=== PATIENT | female | born 1945 | race African-American/Black ===

== ENCOUNTER 2017-08-28 04:31 | Emergency (ER) | payer OTHER ==
[2017-08-28 05:00] VITALS: TEMP 98.5; BMI 34.7
--- NOTE | 2017-08-28 05:22 | PDOC ---
Attending Attestation - HPI HPI: 08/28/17 05:43 The patient is a 71 year old female, with a significant past medical history of hypertension, diabetes mellitus, thyroid surgery, who presents to the emergency department with, palpitations. The patient reports several episodes of palpitations throughout the night and reports a feeling of weakness in her right hand. She denies recent fevers, chills, headache or dizziness. She denies recent nausea, vomit, diarrhea or constipation. She denies recent dysuria, frequency, urgency or hematuria. She denies recent chest pain or shortness of breath. Allergies: NKA Documentation prepared by Srinivas Frausto, acting as manager medical for Miller Cabrera DO. <Srinivas Frausto - Last Filed: 08/28/17 05:44> - Resident Resident Name: Jose A Sears - Physicial Exam PE: 08/28/17 05:59 *Physical Exam General Appearance: Yes: Appropriately Dressed. No: Apparent Distress, Intoxicated HEENT: positive: EOMI, ANGELLA, Normal ENT Inspection, Normal Voice, TMs Normal, Pharynx Normal. negative: Pale Conjunctivae, Photophobia, Scleral Icterus (R), Scleral Icterus (L) Neck: positive: Trachea midline, Normal Thyroid, Supple. negative: Tender, Rigid, Carotid bruit, Stridor, Lymphadenopathy (R), Lymphadenopathy (L), Thyromegaly Respiratory/Chest: positive: Lungs Clear, Normal Breath Sounds. negative: Chest Tender, Respiratory Distress, Accessory Muscle Use, Labored Respiration, RES, Crackles, Rales, Rhonchi, Stridor, Wheezing, Dullness Cardiovascular: positive: Regular Rhythm, Regular Rate, S1, S2. negative: Edema , JVD, Murmur, Bradycardia, Tachycardia Vascular Pulses: Dorsalis-Pedis (R): 2+, Doralis-Pedis (L): 2+ Gastrointestinal/Abdominal: positive: Normal Bowel Sounds, Flat, Soft. negative : Tender, Organomegaly, Pulsatile Mass, Increased Bowel Sounds, Decreased BS, Distended, Guarding, Rebound, Hernia, Hepatomegaly, Spleenomegaly Lymphatic: negative: Adenopathy, Tenderness Musculoskeletal: positive: Normal Inspection. negative: CVA Tenderness, Decreased Range of Motion Extremity: positive: Normal Capillary Refill, Normal Inspection, Normal Range of Motion, Pelvis Stable. negative: Tender, Pedal Edema, Swelling, Erythema Integumentary: positive: Normal Color, Dry, Warm. negative: Cyanotic, Erythema , Jaundice, Rash Neurologic: positive: meal room hand II-XII NML intact, Fully Oriented, Alert, Normal Mood/ Affect, Motor Strength 5/5. negative: EOM Palsy, Facial Droop, Sensory Deficit - Medical Decision Making 08/28/17 20:00 Pt treated and released. <Miller Cabrera - Last Filed: 08/28/17 20:00>
[2017-08-28 05:26] LABS: BASO % 1.1 % (0-2.0); EOS % 2.9 % (0-4.5); HEMOGLOBIN 12.1 GM/dL (10.7-15.3); MCH 29.5 pg (25.7-33.7); MCHC 32.7 g/dl (32.0-36.0); MEAN CELL VOLUME 90.1 fl (80-96); MEAN PLT VOLUME 9.2 fl (7.5-11.1); MONO % 9.4 % (3.8-10.2); NEUT % 39.6 % (42.8-82.8); PLATELET COUNT 236 K/MM3 (134-434); RBC 4.11 M/mm3 (3.60-5.2); RDW 14.7 % (11.6-15.6); WHITE BLOOD COUNT 6.4 K/mm3 (4.0-10.0)
--- NOTE | 2017-08-28 05:45 | PDOC ---
History of Present Illness - General Chief Complaint: Palpitations Stated Complaint: PALPITATIONS Time Seen by Provider: 08/28/17 04:51 History Source: Patient Exam Limitations: No Limitations - History of Present Illness Initial Comments: 08/28/17 05:40 Patient is a 71F with history of anxiety, DM, and HTN here today complaining of palpitations. She states that overnight she's had 3 episodes of a sensation of her heart racing followed by her right hand feeling weak. She denies any other symptoms with these episodes, including chest pain, shortness of breath, nausea , vomiting, diaphoresis and weakness. She states that she feels otherwise ok, just that her hand does not seem to be working properly. She was still able to complete her chores around the house last night. She states that she struggles with anxiety with her health because her son at 45 suddenly from a blood clot. She denies abdominal pain, dysuria. She states that she struggles with constipation sometimes, but last bowel movement was yesterday. Past History - Past Medical History Allergies/Adverse Reactions: Allergies Allergy/AdvReac Type Severity Reaction Status Date / Time No Known Allergies Allergy Verified 12/31/13 15:24 Home Medications: Ambulatory Orders Atenolol [Tenormin -] 25 mg PO DAILY 12/31/13 Fosinopril Na [Monopril (Nf)] 40 mg PO DAILY 12/31/13 Ibuprofen [Motrin -] 400 mg PO TID 12/31/13 Levothyroxine [Synthroid -] 135 mcg PO DAILY 12/31/13 Atorvastatin Ca [Lipitor] 40 mg PO HS 08/28/17 Metformin HCl [Glucophage] 1,000 mg PO BID 08/28/17 COPD: No Diabetes: Yes (type 2) HTN: Yes Hypercholesterolemia: Yes - Suicide/Smoking/Psychosocial Hx Smoking History: Never smoked Have you smoked in the past 12 months: No Hx Alcohol Use: No Drug/Substance Use Hx: No Substance Use Type: None Review of Systems - Review of Systems Comments:: 08/28/17 05:45 GENERAL/CONSTITUTIONAL: No fever or chills. HEAD, EYES, EARS, NOSE AND THROAT: No change in vision. No sore throat. CARDIOVASCULAR: No chest pain or shortness of breath RESPIRATORY: No cough, wheezing, or hemoptysis. GASTROINTESTINAL: No nausea, vomiting, diarrhea. Positive for constipation. GENITOURINARY: No dysuria, frequency, or change in urination. MUSCULOSKELETAL: No joint or muscle swelling or pain. No neck or back pain. SKIN: No rash NEUROLOGIC: No headache, vertigo, loss of consciousness, or change in strength/ sensation. HEMATOLOGIC/LYMPHATIC: No anemia, easy bleeding, or history of blood clots. ALLERGIC/IMMUNOLOGIC: No hives or skin allergy. *Physical Exam - Vital Signs Last Vital Signs Temp Pulse Resp BP Pulse Ox 98.5 F 78 19 148/68 08/28/17 04:57 08/28/17 04:57 08/28/17 04:57 08/28/17 04:57 - Physical Exam Comments: 08/28/17 05:45 GENERAL: Awake, alert, and fully oriented, in no acute distress HEAD: No signs of trauma, normocephalic, atraumatic EYES: PERRLA, EOMI, sclera anicteric, conjunctiva clear ENT: Auricles normal inspection, hearing grossly normal, nares patent, oropharynx clear without exudates. Moist mucosa LUNGS: No distress, speaks full sentences, clear to auscultation bilaterally HEART: Regular rate and rhythm, normal S1 and S2, no murmurs, rubs or gallops, peripheral pulses normal and equal bilaterally. ABDOMEN: Soft, nontender, normoactive bowel sounds. No guarding, no rebound. No masses EXTREMITIES: Normal inspection, Normal range of motion, no edema. No clubbing or cyanosis. NEUROLOGICAL: Cranial nerves II through XII grossly intact. Normal speech, no focal sensorimotor deficits SKIN: Warm, Dry, normal turgor, no rashes or lesions noted. ED Treatment Course - LABORATORY CBC & Chemistry Diagram: 08/28/17 05:14 08/28/17 05:56 - ADDITIONAL ORDERS Additional order review: 08/28/17 05:14 RBC 4.11 MCV 90.1 MCHC 32.7 RDW 14.7 MPV 9.2 Neutrophils % 39.6 L D Lymphocytes % 47.0 H D Monocytes % 9.4 Eosinophils % 2.9 Basophils % 1.1 - RADIOLOGY Radiology Studies Ordered: Category Date Time Status CHEST PA & LAT [RAD] Stat Radiology 08/28/17 05:08 Ordered Medical Decision Making - Medical Decision Making 08/28/17 05:46 71F with history of HTN, DM, and anxiety here today complaining of palpitations. Vital signs stable and normal here. Low threshold to evaluate due to patient's status as diabetic. Differential includes, but is not limited to: anxiety, arrhythmia, acs. Will evaluate with cbc, cmp, trop, mag, cxr, ekg. Will do second trop due to age, dm, htn. EKG shows normal sinus rhythm, normal rate. Normal WI, QTc, QRS intervals. No st elevations/depressions. No t-wave abnormalities. 08/28/17 06:30 CXR shows some haziness in lung tsai, but no overt signs of fluid overload. Lateral film clear. No signs of acute cardiopulmonary process. 08/28/17 06:50 Laboratory Tests 11/06/15 08/28/17 08/28/17 20:32 05:14 05:56 WBC 6.4 Hgb 12.1 Hct 37.0 Plt Count 236 BUN 15 24 H D Creatinine 1.2 H AST 63 H D 59 H ALT 114 H D 85 H D Creatine Kinase Troponin I 08/28/17 05:56 WBC Hgb Hct Plt Count BUN Creatinine AST ALT Creatine Kinase 1379 H Troponin I 0.02 CBC normal. Kidney function bumped from baseline. Last Cr 1.0, last BUN 15. Liver enzymes improved since last visit. CK 1379, elevated. Trop .02. Will do second ck/ck-mb/trop at 10am. 08/28/17 06:[address] Govea. *DC/Admit/Observation/Transfer Diagnosis at time of Disposition: Palpitations - Referrals Referrals: STAFF,NOT ON [Primary Care Provider] - - Patient Instructions - Post Discharge Activity
[2017-08-28 05:52] LABS: INR 0.96 (0.82-1.09); PROTHROMBIN TIME (PATIENT) 10.9 SEC (9.98-11.88)
[2017-08-28 06:34] LABS: ALK PHOS 101 U/L (45-117); ANION GAP 8 (8-16); BILIRUBIN,TOTAL 0.6 mg/dL (0.2-1.0); BLOOD UREA NITROGEN 24 mg/dL (7-18); CALCIUM 8.6 mg/dL (8.5-10.1); CHLORIDE 104 mmol/L (98-107); CO2 24 mmol/L (21-32); CREATININE 1.2 mg/dL (0.55-1.02); GLUCOSE,RANDOM 158 mg/dL (74-106); MAGNESIUM 1.8 mg/dL (1.8-2.4); POTASSIUM 4.9 mmol/L (3.5-5.1); SGOT/AST 59 U/L (15-37); SGPT/ALT 85 U/L (12-78); SODIUM 136 mmol/L (136-145); TOT PROT 7.9 g/dl (6.4-8.2)
[2017-08-28] MEDS ORDERED: SODIUM CHLORIDE 1,000 ML IV STA (07:00)
--- NOTE | 2017-08-28 10:27 | PDOC ---
*Physical Exam - Vital Signs Last Vital Signs Temp Pulse Resp BP Pulse Ox 98.5 F 74 18 137/78 99 08/28/17 08:59 08/28/17 08:59 08/28/17 08:59 08/28/17 08:59 08/28/17 08:59 ED Treatment Course - LABORATORY CBC & Chemistry Diagram: 08/28/17 05:14 08/28/17 05:56 - ADDITIONAL ORDERS Additional order review: Laboratory Results 08/28/17 08/28/17 08/28/17 08:57 05:56 05:56 PT with INR INR Sodium 136 Potassium 4.9 Chloride 104 Carbon Dioxide 24 Anion Gap 8 BUN 24 H D Creatinine 1.2 H Creat Clearance w eGFR 44.29 Random Glucose 158 H D Calcium 8.6 Magnesium 1.8 Total Bilirubin 0.6 D AST 59 H ALT 85 H D Alkaline Phosphatase 101 Creatine Kinase 1313 H 1379 H Creatine Kinase Index 0.5 0.5 CK-MB (CK-2) 7.398 H 7.779 H Troponin I 0.02 0.02 Total Protein 7.9 Albumin 4.0 08/28/17 08/28/17 05:14 05:14 PT with INR 10.90 INR 0.96 Sodium Cancelled Potassium Cancelled Chloride Cancelled Carbon Dioxide Cancelled Anion Gap Cancelled BUN Cancelled Creatinine Cancelled Creat Clearance w eGFR Cancelled Random Glucose Cancelled Calcium Cancelled Magnesium Cancelled Total Bilirubin Cancelled AST Cancelled ALT Cancelled Alkaline Phosphatase Cancelled Creatine Kinase Cancelled Creatine Kinase Index CK-MB (CK-2) Troponin I Cancelled Total Protein Cancelled Albumin Cancelled 08/28/17 05:14 RBC 4.11 MCV 90.1 MCHC 32.7 RDW 14.7 MPV 9.2 Neutrophils % 39.6 L D Lymphocytes % 47.0 H D Monocytes % 9.4 Eosinophils % 2.9 Basophils % 1.1 - Medications Given in the ED: ED Medications Discontinued Medications Generic Name Dose Route Start Last Admin Trade Name Freq PRN Reason Stop Dose Admin Sodium Chloride 1,000 mls @ 1,000 mls/hr 08/28/17 07:00 08/28/17 07:21 Normal Saline - IV 08/28/17 07:59 1,000 mls/hr ASDIR STA Administration *DC/Admit/Observation/Transfer Diagnosis at time of Disposition: Palpitations - Discharge Dispostion Disposition: HOME Admit: No - Referrals Referrals: STAFF,NOT ON [Primary Care Provider] - - Patient Instructions Printed Discharge Instructions: DI for Palpitations, Yoga May Help Reduce Anxiety and Stress Additional Instructions: Come back to the ER for any new, worsening or concerning symptoms,. Follow up with your primary care provider within 3-5 days. - Post Discharge Activity
[2017-08-28 10:51] VITALS: BP 135/68; PULSE 72
--- NOTE | 2017-08-28 12:43 | EKG ---
Test Reason : Blood Pressure : / mmHG Vent. Rate : 079 BPM Atrial Rate : 079 BPM P-R Int : 182 ms QRS Dur : 088 ms QT Int : 372 ms P-R-T Axes : 065 009 035 degrees QTc Int : 426 ms NORMAL SINUS RHYTHM NORMAL ECG WHEN COMPARED WITH ECG OF 06-NOV-2015 20:33, NO SIGNIFICANT CHANGE WAS FOUND Confirmed by BRYON MARIANO MD ([id number]) on 08/28/2017 12:43:35 PM Referred By: Confirmed By:BRYON MARIANO MD
== END 2017-08-28 10:52 | disposition home or self-care (01) ==
LOC: JER 04:31
PROC: 3E0337Z Introduction of Electrolytic and Water Balance Substance into Peripheral Vein, Percutaneous Approach (ICD-10-PCS; principal; 2017-08-28)
DX: R00.2 Palpitations (principal); I10 Essential (primary) hypertension; E11.9 Type 2 diabetes mellitus without complications; Z79.84 Long term (current) use of oral hypoglycemic drugs; F41.9 Anxiety disorder, unspecified
CPT/HCPCS: 36415; 71046-TC; 80053; 82550; 82553; 83735; 84484; 85025; 85610; 93005; 93010; 99284-25

== ENCOUNTER 2017-12-09 06:11 | Observation (INO) | payer OTHER ==
[2017-12-09] MEDS ORDERED: MECLIZINE HCL 25 MG TABLET (FP) PO ONE (07:21)
[2017-12-09] MEDS ORDERED: MECLIZINE HCL 25 MG TABLET (FP) ONE (07:22)
[2017-12-09] MEDS ORDERED: ASPIRIN 81 MG CHEWABLE TABLETS PO ONE (07:44)
[2017-12-09 07:57] LABS: BASO % 1.2 % (0-2.0); EOS % 2.3 % (0-4.5); HEMOGLOBIN 12.3 GM/dL (10.7-15.3); MCH 30.2 pg (25.7-33.7); MCHC 33.4 g/dl (32.0-36.0); MEAN CELL VOLUME 90.5 fl (80-96); MEAN PLT VOLUME 9.6 fl (7.5-11.1); MONO % 7.2 % (3.8-10.2); NEUT % 47.3 % (42.8-82.8); PLATELET COUNT 211 K/MM3 (134-434); RBC 4.09 M/mm3 (3.60-5.2); WHITE BLOOD COUNT 7.2 K/mm3 (4.0-10.0)
[2017-12-09 08:08] LABS: ALBUMIN 4.2 g/dl (3.4-5.0); ANION GAP 10 (8-16); BILIRUBIN,TOTAL 0.7 mg/dL (0.2-1.0); BLOOD UREA NITROGEN 16 mg/dL (7-18); CHLORIDE 104 mmol/L (98-107); CO2 25 mmol/L (21-32); CREATININE 1.2 mg/dL (0.55-1.02); GLUCOSE,RANDOM 212 mg/dL (74-106); MAGNESIUM 1.7 mg/dL (1.8-2.4); POTASSIUM 4.7 mmol/L (3.5-5.1); SGOT/AST 33 U/L (15-37); SGPT/ALT 38 U/L (12-78); SODIUM 139 mmol/L (136-145); TOT PROT 7.8 g/dl (6.4-8.2)
[2017-12-09 08:10] LABS: ALK PHOS 71 U/L (45-117)
[2017-12-09] MEDS ORDERED: ASPIRIN 81 MG CHEWABLE TABLETS ONE (08:42)
[2017-12-09 09:26] LABS: CHOLESTEROL 143 mg/dL (50-200); HDL CHOLESTEROL 80 mg/dL (40-60); LDL CHOLESTEROL (ONLY SJRH) 60 mg/dL (5-100); TRIGLYCERIDES 70 mg/dL (35-160)
--- NOTE | 2017-12-09 09:37 | PDOC ---
History of Present Illness - General History Source: Patient Exam Limitations: No Limitations - History of Present Illness Initial Comments: 12/09/17 10:01 The patient is a 72 year old female with past medical history of hypertension, hyperlipidemia, diabetes, arthritis who presents to the ED with complaints of 3 days of dizziness and unsteadiness on her feet. The patient states that she normally has difficulty walking due to her arthritis, but over the past three days she has been off balanced when she walks, and having a strange sensation in her head. She states that she only experiences the dizziness when she tilts her head back. The patient has also been experiencing a clicking sound behind her right ear as well as right sided neck pain, stating it feels as if she slept wrong. She denies any associated headache, visual changes, focal deficits , nausea, or vomiting. She denies any fever, chills, cough, shortness of breath , chest pain, or urinary symptoms. Allergies: NKDA Surgeries: Thyroidectomy 2/6 systolic ejection murmur <Annalee Oliver - Last Filed: 12/09/17 11:27> <Isrrael Purdy - Last Filed: 12/09/17 11:52> - General Chief Complaint: Lightheaded Stated Complaint: DIZZINESS Time Seen by Provider: 12/09/17 07:06 NIH Stroke Scale - Last Known Well Date/Time & Onset Date Last Known Well: 12/06/17 (upon awakening) - Initial Evaluation Level of consciousness: Alert Ask patient the month and their age: Answers both correctly Ask patient to open & close eyes; make fist and let go: Obeys both correctly Best gaze (horizontal eye movement): Normal Visual field testing: No visual field loss Facial paresis (Show teeth/raise eyebrows/close eyes tight): Normal symmetrical movement Motor Function: Left Arm: Normal Motor Function: Right Arm: Normal (extends arm 90 (or 45) degrees for 10 seconds without drift Motor Function: Left Leg: Normal (extends leg 30 degrees for 5 seconds without drift) Motor Function: Right Leg: Normal (extends leg 30 degrees for 5 seconds without drift) Limb Ataxia: No ataxia Sensory(Use pinprick test arms,legs,trunk,face/side to side): Normal Best language (Describe picture, name items, read sentences): No Aphasia Dysarthria (read several words): Normal articulation Extinction and Inattention: No abnormality - Total Score NIH Stroke Scale Score: 0 <Isrrael Purdy - Last Filed: 12/09/17 11:52> tPA Exclusion checklist 3-4.5h - Ineligibility reason(s) Reasons No tPA given: Outside of window - delayed arrival <Isrrael Purdy - Last Filed: 12/09/17 11:52> Past History <Annalee Oliver - Last Filed: 12/09/17 11:27> - Past Medical History COPD: No Diabetes: Yes (type 2) HTN: Yes Hypercholesterolemia: Yes - Suicide/Smoking/Psychosocial Hx Smoking History: Never smoked Have you smoked in the past 12 months: No Information on smoking cessation initiated: No Hx Alcohol Use: No Drug/Substance Use Hx: No Substance Use Type: None <Isrrael Purdy - Last Filed: 12/09/17 11:52> - Past Medical History Allergies/Adverse Reactions: Allergies Allergy/AdvReac Type Severity Reaction Status Date / Time No Known Allergies Allergy Verified 12/09/17 06:20 Home Medications: Ambulatory Orders Atenolol [Tenormin -] 25 mg PO DAILY 12/31/13 Fosinopril Na [Monopril (Nf)] 40 mg PO DAILY 12/31/13 Ibuprofen [Motrin -] 400 mg PO TID 12/31/13 Levothyroxine [Synthroid -] 135 mcg PO DAILY 12/31/13 Atorvastatin Ca [Lipitor] 40 mg PO HS 08/28/17 Metformin HCl [Glucophage] 1,000 mg PO BID 08/28/17 Review of Systems - Review of Systems Able to Perform ROS?: Yes <Annalee Oliver - Last Filed: 12/09/17 11:27> - Review of Systems Constitutional: No: Chills, Fever HEENTM: No: Recent change in vision Respiratory: No: Cough, Shortness of Breath Cardiac (ROS): No: Chest Pain, Lightheadedness, Syncope ABD/GI: No: Nausea, Vomiting Neurological: Yes: Dizziness. No: Headache All Other Systems: Reviewed and Negative <Isrrael Purdy - Last Filed: 12/09/17 11:52> *Physical Exam - Vital Signs Last Vital Signs Temp Pulse Resp BP Pulse Ox 98.3 F 70 18 133/60 99 12/09/17 06:20 12/09/17 06:20 12/09/17 06:20 12/09/17 06:20 12/09/17 06:20 - Physical Exam Comments: 12/09/17 10:02 GENERAL: The patient is awake, alert, and fully oriented, in no acute distress. HEAD: Normal with no signs of trauma. EYES: Pupils equal, round and reactive to light, extraocular movements intact, sclera anicteric, conjunctiva clear with no pallor. ENT: Ears normal, nares patent, oropharynx clear without exudates. Moist mucous membranes. NECK: Normal range of motion, supple without lymphadenopathy, JVD, or masses. LUNGS: Breath sounds equal, clear to auscultation bilaterally. No wheeze/ crackles. HEART: Regular rate and rhythm, normal S1 and S2 without murmur or rub. ABDOMEN: Soft/nontender/nondistended. BS wnl. No guarding or rebound. No palpable masses. No hepatosplenomegaly. EXTREMITIES: Normal range of motion, no edema. No clubbing or cyanosis. No cords, erythema, or tenderness. PSYCH: Normal mood, normal affect. SKIN: Warm, Dry, normal turgor, no rashes or lesions noted. NEURO: Mental status: The patient is alert and oriented x3. Cranial nerves: Cranial nerves II through XII are intact Motor: The upper extremities are 5 over 5 in all muscle groups. The lower extremities are 5 over 5 in all muscle groups. No pronator drift. Sensation: Sensation is intact to light touch throughout. Cerebellar: Vsxghi-[id number]-aiwx is normal in both upper extremities. Heel-knee- beebe is normal in both lower extremities. Reflexes: 2+ and symmetric in the upper and lower extremities. Gait: Antalgic gait from chronic arthritis. <Annaele Oliver - Last Filed: 12/09/17 11:27> - Vital Signs Last Vital Signs Temp Pulse Resp BP Pulse Ox 98.3 F 70 18 133/60 99 12/09/17 06:20 12/09/17 06:20 12/09/17 06:20 12/09/17 06:20 12/09/17 06:20 <Isrrael Purdy - Last Filed: 12/09/17 11:52> Heart Score/ECG Review #1 ECG reviewed & interpreted by me at: 07:51 General ECG Interpretation: Sinus Rhythm, Normal Rate (62), Normal Intervals ( qtc 395), No acute ischemic changes <Isrrael Purdy - Last Filed: 12/09/17 11:52> ED Treatment Course - LABORATORY CBC & Chemistry Diagram: 12/09/17 07:30 12/09/17 07:30 - ADDITIONAL ORDERS Additional order review: Laboratory Results 12/09/17 12/09/17 07:44 07:30 Sodium 139 Potassium 4.7 Chloride 104 Carbon Dioxide 25 Anion Gap 10 BUN 16 Creatinine 1.2 H Creat Clearance w eGFR 44.16 Random Glucose 212 H Calcium 9.0 Magnesium 1.7 L Total Bilirubin 0.7 AST 33 ALT 38 Alkaline Phosphatase 71 Creatine Kinase 677 H Troponin I < 0.02 Total Protein 7.8 Albumin 4.2 Triglycerides 70 Cholesterol 143 Total LDL Cholesterol 60 HDL Cholesterol 80 H 12/09/17 07:30 RBC 4.09 MCV 90.5 MCHC 33.4 RDW 14.0 MPV 9.6 Neutrophils % 47.3 Lymphocytes % 42.0 H Monocytes % 7.2 Eosinophils % 2.3 Basophils % 1.2 - Medications Given in the ED: ED Medications Discontinued Medications Generic Name Dose Route Start Last Admin Trade Name Freq PRN Reason Stop Dose Admin Aspirin 81 mg 12/09/17 07:44 12/09/17 08:17 Asa - PO 12/09/17 07:45 81 mg ONCE ONE Administration Meclizine HCl 50 mg 12/09/17 07:21 12/09/17 07:33 Antivert - PO 12/09/17 07:22 50 mg ONCE ONE Administration <Annalee Oliver - Last Filed: 12/09/17 11:27> - LABORATORY CBC & Chemistry Diagram: 12/09/17 07:30 12/09/17 07:30 - ADDITIONAL ORDERS Additional order review: Laboratory Results 12/09/17 12/09/17 07:44 07:30 Sodium 139 Potassium 4.7 Chloride 104 Carbon Dioxide 25 Anion Gap 10 BUN 16 Creatinine 1.2 H Creat Clearance w eGFR 44.16 Random Glucose 212 H Calcium 9.0 Magnesium 1.7 L Total Bilirubin 0.7 AST 33 ALT 38 Alkaline Phosphatase 71 Creatine Kinase 677 H Troponin I < 0.02 Total Protein 7.8 Albumin 4.2 Triglycerides 70 Cholesterol 143 Total LDL Cholesterol 60 HDL Cholesterol 80 H 12/09/17 07:30 RBC 4.09 MCV 90.5 MCHC 33.4 RDW 14.0 MPV 9.6 Neutrophils % 47.3 Lymphocytes % 42.0 H Monocytes % 7.2 Eosinophils % 2.3 Basophils % 1.2 - RADIOLOGY Radiology Studies Ordered: Category Date Time Status HEAD CT (STROKE) [CT] Stat CT Scan 12/09/17 07:44 Completed - Medications Given in the ED: ED Medications Discontinued Medications Generic Name Dose Route Start Last Admin Trade Name Paul PRN Reason Stop Dose Admin Aspirin 81 mg 12/09/17 07:44 12/09/17 08:17 Asa - PO 12/09/17 07:45 81 mg ONCE ONE Administration Meclizine HCl 50 mg 12/09/17 07:21 12/09/17 07:33 Antivert - PO 12/09/17 07:22 50 mg ONCE ONE Administration <Isrrael Purdy - Last Filed: 12/09/17 11:52> Medical Decision Making - Medical Decision Making 12/09/17 10:[address] Dr[address] Pacheco at his office. Awaiting call back. 12/09/17 11:27 Microblog sent [facility]. Awaiting call back <Annalee Oliver - Last Filed: 12/09/17 11:27> - Medical Decision Making 12/09/17 09:39 A portion of this note was documented by scribe services under my direction. I have reviewed the details of the note, within reason, and agree with the documentation with the following case summary and management plan written by me. 72-year-old female with history of hypertension, diabetes, arthritis presents with 3 days of intermittent dizziness and gait disturbance. Patient reports refill episodes lasting only up to 5 minutes of dizziness and sometimes difficulty with coordination and ambulating. There is no headache or vision change, no speech change, no focal weakness. There is no positional vertigo, no cardiopulmonary complaints. No recent dehydration or infections. Vital signs normal Very well-appearing and conversant, ambulating steadily on her own Slight ejection murmur, lungs are otherwise clear and no ectopy or arrhythmia Neurological exam is nonfocal, has baseline antalgic gait from arthritis 72-year-old female with intermittent dizziness and reported gait disturbance for 3 days. Given her risk factors, small ischemic events cannot be excluded as the etiology of her symptoms. Question peripheral in etiology given her ear complaints, but there is no consistent positional change to her symptoms. Labs are within normal limits including troponin Stroke CT head protocol shows no evidence of recent infarct, there are calcifications along the internal carotid arteries Takes daily aspirin UA pending 12/09/17 10:28 UA clear. discussed with patient and outlined concerns for possible TIA and vertebrobasilar syndrome given her risk factors. Should have more extensive workup with eval of carotids and MRI, should be medically optimized with statin , etc. Agrees to admission. Dr. Pacheco armor reconnaissance vehicle crewman and paged for obs placement. 12/09/17 11:50 [employer] covering. Accepted for obs stroke by Dr. Chacon, signout given to ANDRADE Kennedy. Consult entered for Dr. Lowery, armor reconnaissance vehicle crewman neuro. <Isrrael Purdy - Last Filed: 12/09/17 11:52> *DC/Admit/Observation/Transfer - Attestations Scribe Attestion: 12/09/17 10:04 Documentation prepared by Annalee Oliver, acting as medical coding specialist for Isrrael Purdy MD. <Annalee Oliver - Last Filed: 12/09/17 11:27> - Discharge Dispostion Admit: Yes <Isrrael Purdy - Last Filed: 12/09/17 11:52> Diagnosis at time of Disposition: TIA (transient ischemic attack) Qualifiers: Transient cerebral ischemia type: unspecified Qualified Code(s): G45.9 - Transient cerebral ischemic attack, unspecified - Discharge Dispostion Condition at time of disposition: Fair
[2017-12-09 09:48] LABS: URINE APPEARANCE SLCLOUDY; URINE BILIRUBIN NEGATIVE (<2.0 mg/dL); URINE BLOOD NEGATIVE (NEGATIVE); URINE COLOR LTYELLOW; URINE GLUCOSE (UA) 1+ (NEGATIVE); URINE KETONE NEGATIVE (NEGATIVE); URINE LEUK ESTERASE NEGATIVE (NEGATIVE); URINE NITRITE NEGATIVE (NEGATIVE); URINE PROTEIN NEGATIVE (NEGATIVE); URINE UROBILINOGEN NEGATIVE mg/dL (0.2-1.0)
[2017-12-09 11:09] LABS: INR 0.96 (0.82-1.09); PROTHROMBIN TIME (PATIENT) 10.9 SEC (9.7-13.0)
[2017-12-09] MEDS ORDERED: LEVOTHYROXINE NA 100 MCG TABLET (FP) PO SCH (12:00)
[2017-12-09] MEDS ORDERED: MAGNESIUM 2GM/50ML STERILE WATER IVPB IVPB ONE (12:09)
--- NOTE | 2017-12-09 12:31 | HP ---
CHIEF COMPLAINT: Dizziness PCP: Sees doctors at [facility] x 30 years, does not recall names HISTORY OF PRESENT ILLNESS: The patient is a 72 year-old female with past medical history of HTN, HLD, NIDDM , arthritis, anxiety/depression, and s/p thyroidectomy, who presents to the ED with complaints of 3 days of intermittent dizziness and unsteadiness on her feet. The patient states she normally has difficulty walking due to her arthritis, but over the past three days she has been off balance when she walks , and has had a strange sensation in her head. She states that she only experiences the dizziness when she tilts her head back. The patient has also been experiencing a clicking sound behind her right ear as well as right sided neck pain, stating it feels as if she slept wrong. She denies any associated headache, visual changes, focal deficits, nausea, or vomiting. She denies any fever, chills, cough, shortness of breath, chest pain, or urinary symptoms. ER course was notable for: (1) CT head: no acute process (2) Meclizine 50mg x 1; ASA 81mg x 1 Recent Travel: No PAST MEDICAL HISTORY: Hypertension Hyperlipidemia NIDDM Arthritis Depression/anxiety PAST SURGICAL HISTORY: Thyroidectomy Social History: Smoking: never Alcohol: no Drugs: no Family History: Allergies No Known Allergies Allergy (Verified 12/09/17 06:20) HOME MEDICATIONS: Home Medications Medication Instructions Recorded Atenolol [Tenormin -] 25 mg PO DAILY 12/31/13 Fosinopril Na [Monopril (Nf)] 40 mg PO DAILY 12/31/13 Ibuprofen [Motrin -] 400 mg PO TID 12/31/13 Levothyroxine [Synthroid -] 135 mcg PO DAILY 12/31/13 Atorvastatin Ca [Lipitor] 40 mg PO HS 08/28/17 Metformin HCl [Glucophage] 1,000 mg PO BID 08/28/17 REVIEW OF SYSTEMS CONSTITUTIONAL: Absent: fever, chills, diaphoresis, generalized weakness, malaise, loss of appetite, weight change HEENT: Absent: rhinorrhea, nasal congestion, throat pain, throat swelling, difficulty swallowing, mouth swelling, ear pain, eye pain, visual changes CARDIOVASCULAR: Absent: chest pain, syncope, palpitations, irregular heart rate, lightheadedness , peripheral edema RESPIRATORY: Absent: cough, shortness of breath, dyspnea with exertion, orthopnea, wheezing, stridor, hemoptysis GASTROINTESTINAL: Absent: abdominal pain, abdominal distension, nausea, vomiting, diarrhea, constipation, melena, hematochezia GENITOURINARY: Absent: dysuria, frequency, urgency, hesitancy, hematuria, flank pain, genital pain MUSCULOSKELETAL: Absent: myalgia, arthralgia, joint swelling, back pain, neck pain SKIN: Absent: rash, itching, pallor HEMATOLOGIC/IMMUNOLOGIC: Absent: easy bleeding, easy bruising, lymphadenopathy, frequent infections ENDOCRINE: Absent: unexplained weight gain, unexplained weight loss, heat intolerance, cold intolerance NEUROLOGIC: +dizziness, unsteadiness on feet Absent: headache, focal weakness or paresthesias, seizure, mental status changes , bladder or bowel incontinence PSYCHIATRIC: Absent: anxiety, depression, suicidal or homicidal ideation, hallucinations. PHYSICAL EXAMINATION Vital Signs - 24 hr 12/09/17 12/09/17 06:20 10:41 Temperature 98.3 F Pulse Rate 70 Pulse Rate [ 65 Apical] Respiratory 18 16 Rate Blood Pressure 133/60 Blood Pressure 134/75 [Right Arm] O2 Sat by Pulse 99 98 Oximetry (%) GENERAL: Awake, alert, and fully oriented, in no acute distress. HEAD: Normal with no signs of trauma. EYES: Pupils equal, round and reactive to light, extraocular movements intact, sclera anicteric, conjunctiva clear. No lid lag. EARS, NOSE, THROAT: Ears normal, nares patent, oropharynx clear without exudates. Moist mucous membranes. NECK: Normal range of motion, supple without lymphadenopathy, JVD, or masses. LUNGS: Breath sounds equal, clear to auscultation bilaterally. No wheezes, and no crackles. No accessory muscle use. HEART: Regular rate and rhythm, normal S1 and S2 + murmur ABDOMEN: Soft, nontender, not distended, normoactive bowel sounds, no guarding, no rebound, no masses MUSCULOSKELETAL: Normal range of motion at all joints. No bony deformities or tenderness. No CVA tenderness. UPPER EXTREMITIES: 2+ pulses, warm, well-perfused. No cyanosis. No clubbing. No peripheral edema. LOWER EXTREMITIES: 2+ pulses, warm, well-perfused. No calf tenderness. No peripheral edema. NEUROLOGICAL: Cranial nerves II-XII intact. Normal speech. Laboratory Results - last 24 hr 12/09/17 12/09/17 12/09/17 07:19 07:30 07:30 WBC 7.2 RBC 4.09 Hgb 12.3 Hct 37.0 MCV 90.5 MCH 30.2 MCHC 33.4 RDW 14.0 Plt Count 211 MPV 9.6 Neutrophils % 47.3 Lymphocytes % 42.0 H Monocytes % 7.2 Eosinophils % 2.3 Basophils % 1.2 PT with INR INR Sodium 139 Potassium 4.7 Chloride 104 Carbon Dioxide 25 Anion Gap 10 BUN 16 Creatinine 1.2 H Creat Clearance w eGFR 44.16 Random Glucose 212 H Calcium 9.0 Magnesium 1.7 L Total Bilirubin 0.7 AST 33 ALT 38 Alkaline Phosphatase 71 Creatine Kinase 677 H Creatine Kinase Index 0.9 CK-MB (CK-2) 6.254 H Troponin I < 0.02 Total Protein 7.8 Albumin 4.2 Triglycerides Cholesterol Total LDL Cholesterol HDL Cholesterol Urine Color Ltyellow Urine Appearance Slcloudy Urine pH 5.0 Ur Specific [place] 1.011 Urine Protein Negative Urine Glucose (UA) 1+ H Urine Ketones Negative Urine Blood Negative Urine Nitrite Negative Urine Bilirubin Negative Urine Urobilinogen Negative Ur Leukocyte Esterase Negative 12/09/17 12/09/17 07:44 10:40 WBC RBC Hgb Hct MCV MCH MCHC RDW Plt Count MPV Neutrophils % Lymphocytes % Monocytes % Eosinophils % Basophils % PT with INR 10.90 INR 0.96 Sodium Potassium Chloride Carbon Dioxide Anion Gap BUN Creatinine Creat Clearance w eGFR Random Glucose Calcium Magnesium Total Bilirubin AST ALT Alkaline Phosphatase Creatine Kinase Creatine Kinase Index CK-MB (CK-2) Troponin I Total Protein Albumin Triglycerides 70 Cholesterol 143 Total LDL Cholesterol 60 HDL Cholesterol 80 H Urine Color Urine Appearance Urine pH Ur Specific [place] Urine Protein Urine Glucose (UA) Urine Ketones Urine Blood Urine Nitrite Urine Bilirubin Urine Urobilinogen Ur Leukocyte Esterase ASSESSMENT/PLAN 72 year-old female with a PMH significant for HTN, HLD, NIDDM, arthritis, anxiety/depression, and s/p thyroidectomy. Placed on observation for possible TIAs v. CVA. Dizziness --CT head negative for acute process --MRI brain w/o contrast and MRA brain and neck with contrast ordered --US carotids ordered --troponin neg x 1, 2 pending --Echo 12/09: impaired LV relaxation; RV normal; LAE; trace AI --continue home dose statin and ASA --neurology consult pending Hypertension --BP stable --continue lisinopril (formulary substitute), atenolol Hyperlipidemia --HDL 40mg/dL --continue home dose Lipitor 40mg NIDDM --Novolog sliding scale coverage Arthritis --stable Anxiety/depression --on no home meds s/p thyroidectomy --check TSH Hypomagnesemia --repleted FEN Fluids: PO intake adequate Electrolytes: replete as indicated Nutrition: low sodium diabetic DVT prophylaxis: SCDs, oob, ambulation Physical therapy Dispo: continues to require inpatient care. Full code. Visit type - Emergency Visit Emergency Visit: Yes ED Registration Date: 12/09/17 Care time: The patient presented to the Emergency Department on the above date and was hospitalized for further evaluation of their emergent condition. - New Patient This patient is new to me today: Yes Date on this admission: 12/09/17 - Critical Care Critical Care patient: No Hospitalist Screening - Colonoscopy Questionnaire Colonoscopy Questionnaire: Colonoscopy Questionnaire - Patient: 50 - 75 years old and never had a screening colonoscopy: Unknown History of colon or rectal polyps, or CA: Unknown History of IBD, Crohn's disease or UC: Unknown History of abdominal radiation therapy as a child: Unknown - Relative: 1 with colon or rectal CA, or polyps at age 60 or younger: Unknown Colon or rectal CA diagnosed at age 45 or younger: Unknown Multiple relatives with colon or rectal CA: Unknown - Outcome: Screening Result: Negative Screen
[2017-12-09] MEDS ORDERED: SODIUM CHLORIDE 1,000 ML IV SCH (13:00)
[2017-12-09 13:14] VITALS: BMI 35.7
--- NOTE | 2017-12-09 13:39 | EKG ---
Test Reason : Blood Pressure : / mmHG Vent. Rate : 062 BPM Atrial Rate : 062 BPM P-R Int : 182 ms QRS Dur : 096 ms QT Int : 390 ms P-R-T Axes : 055 008 015 degrees QTc Int : 395 ms NORMAL SINUS RHYTHM CANNOT RULE OUT ANTERIOR INFARCT , AGE UNDETERMINED ABNORMAL ECG WHEN COMPARED WITH ECG OF 28-AUG-2017 04:46, NO SIGNIFICANT CHANGE WAS FOUND Confirmed by MD LYNN, ROLANDO ([id number]) on 12/09/2017 1:39:06 PM Referred By: Confirmed By:ROLANDO BAILEY MD
[2017-12-09] MEDS: ATENOLOL 25 MG TABLET (FP) PO SCH ×2 (14:12→14:22)
[2017-12-09] MEDS: LISINOPRIL 20 MG TABLET (FP) PO SCH ×2 (14:12→14:22)
[2017-12-09] MEDS ORDERED: PT OWN MED DRAWER 7, Y5N ONE (17:05)
[2017-12-09] MEDS: INSULIN SLIDING SCALE (NOVOLOG) 1 VIAL SQ SCH ×2 (17:31→21:31)
[2017-12-09] MEDS ORDERED: diazePAM 5 MG TABLET PO ONE ×2 (18:30)
[2017-12-09] MEDS ORDERED: ATORVASTATIN CA 40 MG TABLET (FP) PO SCH (22:00)
[2017-12-10] MEDS ORDERED: LEVOTHYROXINE NA 25 MCG TABLET (FP) ONE (05:10)
[2017-12-10] MEDS ORDERED: LEVOTHYROXINE NA 112 MCG TABLET (FP) ONE (05:10)
[2017-12-10] MEDS ORDERED: INSULIN (NOVOLOG) ASPART 100 UNITS/ML 10ML VIAL ONE ×3 (06:37→17:20)
[2017-12-10] MEDS: INSULIN SLIDING SCALE (NOVOLOG) 1 VIAL SQ SCH ×3 (06:38→17:21)
[2017-12-10 06:59] LABS: BASO % 0.6 % (0-2.0); EOS % 2.5 % (0-4.5); HEMATOCRIT 35.1 % (32.4-45.2); HEMOGLOBIN 11.6 GM/dL (10.7-15.3); MCH 30.1 pg (25.7-33.7); MCHC 33.2 g/dl (32.0-36.0); MEAN CELL VOLUME 90.5 fl (80-96); MEAN PLT VOLUME 10.1 fl (7.5-11.1); MONO % 8.7 % (3.8-10.2); NEUT % 35.2 % (42.8-82.8); PLATELET COUNT 191 K/MM3 (134-434); RBC 3.87 M/mm3 (3.60-5.2); RDW 14.3 % (11.6-15.6); WHITE BLOOD COUNT 5.3 K/mm3 (4.0-10.0)
[2017-12-10] MEDS ORDERED: LEVOTHYROXINE 112 MCG, LEVOTHYROXINE 25 MCG PO SCH (07:00)
[2017-12-10 07:27] LABS: CHLORIDE 108 mmol/L (98-107); POTASSIUM 4.4 mmol/L (3.5-5.1); SODIUM 141 mmol/L (136-145)
[2017-12-10 07:34] LABS: ALBUMIN 3.6 g/dl (3.4-5.0); ALK PHOS 55 U/L (45-117); ANION GAP 5 (8-16); BILIRUBIN,TOTAL 0.8 mg/dL (0.2-1.0); BLOOD UREA NITROGEN 11 mg/dL (7-18); CALCIUM 8.5 mg/dL (8.5-10.1); CO2 28 mmol/L (21-32); GLUCOSE,RANDOM 194 mg/dL (74-106); SGOT/AST 28 U/L (15-37); SGPT/ALT 36 U/L (12-78); TOT PROT 6.7 g/dl (6.4-8.2)
[2017-12-10] MEDS: LISINOPRIL 20 MG TABLET (FP) PO SCH (09:50)
[2017-12-10] MEDS: ATENOLOL 25 MG TABLET (FP) PO SCH (09:50)
[2017-12-10] MEDS ORDERED: [UNRECOGNIZED DRUG - OTHER] PO SCH (10:00)
[2017-12-10] MEDS ORDERED: ASPIRIN COATED 81 MG TABLET.EC PO SCH (10:00)
--- NOTE | 2017-12-10 10:04 | CONSULT ---
Consult - text type - Consultation Consultation Note: Neurology CHIEF COMPLAINT: Dizziness HISTORY OF PRESENT ILLNESS: 72 year-old female with past medical history of HTN, HLD, NIDDM, arthritis, anxiety/depression, and s/p thyroidectomy, who presented to the ED with complaints of 3 days of intermittent dizziness and unsteadiness on her feet. The patient states she normally has difficulty walking due to her arthritis, but over the past three days she has been off balance when she walks, and has had a strange sensation in her head. She states that she only experiences the dizziness when she tilts her head back. The patient has also been experiencing a clicking sound behind her right ear as well as right sided neck pain, stating it feels as if she slept wrong. She denies any associated headache, visual changes, focal deficits, nausea, or vomiting. She denies any fever, chills, cough, shortness of breath, chest pain, or urinary symptoms. CT head completed in ER and without acute changes. MRI/MRA attempted overnight and patient with clautrophobia and could not tolerate despite oral medication. Requesting possible IV medication. Recent Travel: No PAST MEDICAL HISTORY: Hypertension Hyperlipidemia NIDDM Arthritis Depression/anxiety PAST SURGICAL HISTORY: Thyroidectomy Social History: Smoking: never Alcohol: no Drugs: no Family History: Allergies No Known Allergies Allergy (Verified 12/09/17 06:20) Home Medication List Medication Instructions Recorded Confirmed Type Atenolol [Tenormin -] 25 mg PO DAILY 12/31/13 12/09/17 History Fosinopril Na [Monopril (Nf)] 40 mg PO DAILY 12/31/13 12/09/17 History Ibuprofen [Motrin -] 400 mg PO TID 12/31/13 12/09/17 History Levothyroxine [Synthroid -] 135 mcg PO DAILY 12/31/13 12/09/17 History Atorvastatin Ca [Lipitor] 40 mg PO HS 08/28/17 12/09/17 History Metformin HCl [Glucophage] 1,000 mg PO BID 08/28/17 12/09/17 History Active Medications Generic Name Dose Route Start Last Admin Trade Name Freq PRN Reason Stop Dose Admin Aspirin 81 mg 12/10/17 10:00 12/10/17 09:50 Ecotrin - PO 81 mg DAILY CHANTELL Administration Atenolol 25 mg 12/09/17 12:15 12/10/17 09:50 Tenormin - PO 25 mg DAILY CHANTELL Administration Atorvastatin Calcium 40 mg 12/09/17 22:00 12/09/17 21:27 Lipitor - PO 40 mg HS CHANTELL Administration Sodium Chloride 1,000 mls @ 42 mls/hr 12/09/17 13:00 12/09/17 14:12 Normal Saline - IV 42 mls/hr ASDIR CHANTELL Administration Insulin Aspart 1 vial 12/09/17 16:30 12/10/17 06:38 Novolog Vial Sliding Scale - SQ 4 units ACHS CHANTELL Administration Protocol Levothyroxine Sodium 112 mcg/ 137 mcg 12/10/17 07:00 12/10/17 06:38 Levothyroxine Sodium 25 mcg PO 137 mcg DAILY@0700 CHANTELL Administration Lisinopril 40 mg 12/09/17 12:15 12/10/17 09:50 Prinivil PO 40 mg DAILY CHANTELL Administration REVIEW OF SYSTEMS CONSTITUTIONAL: Absent: fever, chills, diaphoresis, generalized weakness, malaise, loss of appetite, weight change HEENT: Absent: rhinorrhea, nasal congestion, throat pain, throat swelling, difficulty swallowing, mouth swelling, ear pain, eye pain, visual changes CARDIOVASCULAR: Absent: chest pain, syncope, palpitations, irregular heart rate, lightheadedness , peripheral edema RESPIRATORY: Absent: cough, shortness of breath, dyspnea with exertion, orthopnea, wheezing, stridor, hemoptysis GASTROINTESTINAL: Absent: abdominal pain, abdominal distension, nausea, vomiting, diarrhea, constipation, melena, hematochezia GENITOURINARY: Absent: dysuria, frequency, urgency, hesitancy, hematuria, flank pain, genital pain MUSCULOSKELETAL: Absent: myalgia, arthralgia, joint swelling, back pain, neck pain SKIN: Absent: rash, itching, pallor HEMATOLOGIC/IMMUNOLOGIC: Absent: easy bleeding, easy bruising, lymphadenopathy, frequent infections ENDOCRINE: Absent: unexplained weight gain, unexplained weight loss, heat intolerance, cold intolerance NEUROLOGIC: +dizziness, unsteadiness on feet Absent: headache, focal weakness or paresthesias, seizure, mental status changes , bladder or bowel incontinence PSYCHIATRIC: Absent: anxiety, depression, suicidal or homicidal ideation, hallucinations. PHYSICAL EXAMINATION Vital Signs Period Temp Pulse Resp BP Sys/Sy Pulse Ox Last 24 Hr 97.8 F-99.5 F 64-71 16-20 113-143/58-75 96-99 GENERAL: Awake, alert, and fully oriented, in no acute distress. HEAD: Normal with no signs of trauma. EYES: Pupils equal, round and reactive to light, extraocular movements intact, sclera anicteric, conjunctiva clear. No lid lag. EARS, NOSE, THROAT: Ears normal, nares patent, oropharynx clear without exudates. Moist mucous membranes. NECK: Normal range of motion, supple without lymphadenopathy, JVD, or masses. LUNGS: Breath sounds equal, clear to auscultation bilaterally. No wheezes, and no crackles. No accessory muscle use. HEART: Regular rate and rhythm, normal S1 and S2 + murmur ABDOMEN: Soft, nontender, not distended, normoactive bowel sounds, no guarding, no rebound, no masses MUSCULOSKELETAL: Normal range of motion at all joints. No bony deformities or tenderness. No CVA tenderness. UPPER EXTREMITIES: 2+ pulses, warm, well-perfused. No cyanosis. No clubbing. No peripheral edema. LOWER EXTREMITIES: 2+ pulses, warm, well-perfused. No calf tenderness. No peripheral edema. NEUROLOGICAL: Cranial nerves II-XII intact. Normal speech. CBCD WBC 5.3 K/mm3 (4.0-10.0) 12/10/17 06:25 RBC 3.87 M/mm3 (3.60-5.2) 12/10/17 06:25 Hgb 11.6 GM/dL (10.7-15.3) 12/10/17 06:25 Hct 35.1 % (32.4-45.2) 12/10/17 06:25 MCV 90.5 fl (80-96) 12/10/17 06:25 MCHC 33.2 g/dl (32.0-36.0) 12/10/17 06:25 RDW 14.3 % (11.6-15.6) 12/10/17 06:25 Plt Count 191 K/MM3 (134-434) 12/10/17 06:25 MPV 10.1 fl (7.5-11.1) 12/10/17 06:25 CMP Sodium 141 mmol/L (136-145) 12/10/17 06:25 Potassium 4.4 mmol/L (3.5-5.1) 12/10/17 06:25 Chloride 108 mmol/L (98-107) H 12/10/17 06:25 Carbon Dioxide 28 mmol/L (21-32) 12/10/17 06:25 Anion Gap 5 (8-16) L 12/10/17 06:25 BUN 11 mg/dL (7-18) 12/10/17 06:25 Creatinine 1.0 mg/dL (0.55-1.02) 12/10/17 06:25 Creat Clearance w eGFR 54.50 (>60) 12/10/17 06:25 Calcium 8.5 mg/dL (8.5-10.1) 12/10/17 06:25 Total Bilirubin 0.8 mg/dL (0.2-1.0) 12/10/17 06:25 AST 28 U/L (15-37) 12/10/17 06:25 ALT 36 U/L (12-78) 12/10/17 06:25 Alkaline Phosphatase 55 U/L (45-117) 12/10/17 06:25 Total Protein 6.7 g/dl (6.4-8.2) 12/10/17 06:25 Albumin 3.6 g/dl (3.4-5.0) 12/10/17 06:25 CT head reviewed, negative for acute changes Echo 12/09: impaired LV relaxation; RV normal; LAE; trace AI ASSESSMENT/PLAN 72 year-old female with past medical history of HTN, HLD, NIDDM, arthritis, anxiety/depression, and s/p thyroidectomy, who presented to the ED with complaints of 3 days of intermittent dizziness and unsteadiness on her feet. The patient states she normally has difficulty walking due to her arthritis, but over the past three days she has been off balance when she walks, and has had a strange sensation in her head. She states that she only experiences the dizziness when she tilts her head back. The patient has also been experiencing a clicking sound behind her right ear as well as right sided neck pain, stating it feels as if she slept wrong. She denies any associated headache, visual changes, focal deficits, nausea, or vomiting. She denies any fever, chills, cough, shortness of breath, chest pain, or urinary symptoms. CT head completed in ER and without acute changes. MRI/MRA attempted overnight and patient with clautrophobia and could not tolerate despite oral anxiolytic medication. Patient requesting possible IV medication. Very nervous about having imaging Carotid Doppler pending Continue home dose statin and ASA Monitor blood pressure, goal < 160/90 for now, <130/80 as outpatient Continue Lisinopril, Atenolol Goal LDL<100, goal < 70 if CVA, continue Statin Monitor glucose, maintain euglycemic state Fall precautions DVT ppx
[2017-12-10] MEDS ORDERED: SODIUM CHLORIDE 1,000 ML IV SCH (10:50)
--- NOTE | 2017-12-10 10:53 | PN ---
Physical Exam: SUBJECTIVE: Patient seen and examined sitting on edge of bed. OBJECTIVE: Vital Signs Period Temp Pulse Resp BP Sys/Sy Pulse Ox Last 24 Hr 97.8 F-99.5 F 64-71 17-20 113-143/58-74 96-99 GENERAL: The patient is awake, alert, and fully oriented, in no acute distress. LUNGS: Breath sounds equal, clear to auscultation bilaterally, no wheezes, no crackles, no accessory muscle use. HEART: Regular rate and rhythm, S1, S2 EXTREMITIES: 2+ pulses, warm, well-perfused, no edema. NEUROLOGICAL: Cranial nerves II through XII grossly intact. Normal speech. No focal deficits. Laboratory Results - last 24 hr 12/09/17 12/09/17 12/09/17 07:30 10:40 17:26 WBC RBC Hgb Hct MCV MCH MCHC RDW Plt Count MPV Neutrophils % Lymphocytes % Monocytes % Eosinophils % Basophils % PT with INR 10.90 INR 0.96 Sodium Potassium Chloride Carbon Dioxide Anion Gap BUN Creatinine Creat Clearance w eGFR POC Glucometer 187 Random Glucose Calcium Magnesium Total Bilirubin AST ALT Alkaline Phosphatase Creatine Kinase Index 0.9 CK-MB (CK-2) 6.254 H Troponin I Total Protein Albumin 12/09/17 12/09/17 12/10/17 21:29 23:00 05:41 WBC RBC Hgb Hct MCV MCH MCHC RDW Plt Count MPV Neutrophils % Lymphocytes % Monocytes % Eosinophils % Basophils % PT with INR INR Sodium Potassium Chloride Carbon Dioxide Anion Gap BUN Creatinine Creat Clearance w eGFR POC Glucometer 207 217 Random Glucose Calcium Magnesium Total Bilirubin AST ALT Alkaline Phosphatase Creatine Kinase Index CK-MB (CK-2) Troponin I < 0.02 Total Protein Albumin 12/10/17 12/10/17 12/10/17 06:25 06:25 06:25 WBC 5.3 RBC 3.87 Hgb 11.6 Hct 35.1 MCV 90.5 MCH 30.1 MCHC 33.2 RDW 14.3 Plt Count 191 MPV 10.1 Neutrophils % 35.2 L D Lymphocytes % 53.0 H D Monocytes % 8.7 Eosinophils % 2.5 Basophils % 0.6 PT with INR INR Sodium 141 Potassium 4.4 Chloride 108 H Carbon Dioxide 28 Anion Gap 5 L BUN 11 Creatinine 1.0 Creat Clearance w eGFR 54.50 POC Glucometer Random Glucose 194 H Calcium 8.5 Magnesium 2.0 Total Bilirubin 0.8 AST 28 ALT 36 Alkaline Phosphatase 55 Creatine Kinase Index CK-MB (CK-2) Troponin I < 0.02 Cancelled Total Protein 6.7 Albumin 3.6 Active Medications Generic Name Dose Route Start Last Admin Trade Name Paul PRN Reason Stop Dose Admin Aspirin 81 mg 12/10/17 10:00 12/10/17 09:50 Ecotrin - PO 81 mg DAILY CHANTELL Administration Atenolol 25 mg 12/09/17 12:15 12/10/17 09:50 Tenormin - PO 25 mg DAILY CHANTELL Administration Atorvastatin Calcium 40 mg 12/09/17 22:00 12/09/17 21:27 Lipitor - PO 40 mg HS CHANTELL Administration Sodium Chloride 1,000 mls @ 100 mls/hr 12/10/17 10:50 Normal Saline - IV ASDIR CHANTELL Insulin Aspart 1 vial 12/09/17 16:30 12/10/17 06:38 Novolog Vial Sliding Scale - SQ 4 units ACHS CHANTELL Administration Protocol Levothyroxine Sodium 112 mcg/ 137 mcg 12/10/17 07:00 12/10/17 06:38 Levothyroxine Sodium 25 mcg PO 137 mcg DAILY@0700 CHANTELL Administration Lisinopril 40 mg 12/09/17 12:15 12/10/17 09:50 Prinivil PO 40 mg DAILY CHANTELL Administration ASSESSMENT/PLAN 72 year-old female with a PMH significant for HTN, HLD, NIDDM, arthritis, anxiety/depression, and s/p thyroidectomy. Placed on observation for possible TIAs v. CVA. Dizziness --initial CT head negative for acute process --could not tolerate MRI even with valium 10mg; will get CTA brain and neck this afternoon --US carotids 12/10: no hemodynamically significant stenosis --troponin neg x 3 --Echo 12/09: impaired LV relaxation; RV normal; LAE; trace AI --continue home dose statin and ASA --neurology following Hypertension --BP stable --goal <160/90 for now, <130/80 as outpatient --continue lisinopril (formulary substitute), atenolol Hyperlipidemia --HDL 40mg/dL --continue home dose Lipitor 40mg NIDDM --Novolog sliding scale coverage Arthritis --stable Anxiety/depression --on no home meds s/p thyroidectomy --check TSH Hypomagnesemia --repleted FEN Fluids: PO intake adequate Electrolytes: replete as indicated Nutrition: low sodium diabetic DVT prophylaxis: SCDs, oob, ambulation Physical therapy Dispo: continues to require inpatient care. Full code. Visit type - Emergency Visit Emergency Visit: Yes ED Registration Date: 12/09/17 Care time: The patient presented to the Emergency Department on the above date and was hospitalized for further evaluation of their emergent condition. - New Patient This patient is new to me today: No - Critical Care Critical Care patient: No
[2017-12-10] MEDS ORDERED: MECLIZINE HCL 25 MG TABLET (FP) PO ONE (15:50)
[2017-12-10 18:55] VITALS: BP 125/75; PULSE 64; TEMP 98.8
== END 2017-12-10 18:29 | disposition home or self-care (01) ==
LOC: JER 06:11 → JERBED 11:52 → J4W 13:43
PROVIDERS: ADMIT Hospitalist; ATTEND Nurse Practitioner Acute Care
PROC: 3E033GC Introduction of Other Therapeutic Substance into Peripheral Vein, Percutaneous Approach (ICD-10-PCS; principal; 2017-12-09)
PROC: 3E0337Z Introduction of Electrolytic and Water Balance Substance into Peripheral Vein, Percutaneous Approach (ICD-10-PCS; 2017-12-09)
PROC: 3E013VG Introduction of Insulin into Subcutaneous Tissue, Percutaneous Approach (ICD-10-PCS; 2017-12-09)
DX: R42 Dizziness and giddiness (principal); I10 Essential (primary) hypertension; E78.5 Hyperlipidemia, unspecified; E11.9 Type 2 diabetes mellitus without complications; E89.0 Postprocedural hypothyroidism; M19.90 Unspecified osteoarthritis, unspecified site; E83.42 Hypomagnesemia; Z79.84 Long term (current) use of oral hypoglycemic drugs
CPT/HCPCS: 36415; 70450-TC; 70496-TC; 70498-TC; 80053; 81003; 82465; 82550; 82553; 82962; 83718; 83721; 83735; 84443; 84478; 84484; 85025; 85610; 93005; 93010; 93306-TC; 93880-TC; 96372; 96374; 99285-25; G0378; J7030

== ENCOUNTER 2019-09-28 09:33 | Emergency (ER) | payer OTHER ==
[2019-09-28 09:44] VITALS: BMI 37.5
--- NOTE | 2019-09-28 09:58 | PDOC ---
History of Present Illness - General Chief Complaint: Eye Problem Stated Complaint: LT. EYE BLEEDING Time Seen by Provider: 09/28/19 09:57 History Source: Patient - History of Present Illness Initial Comments: 09/28/19 10:22 Ms. Donohue is a 73 y.o woman w/hx HTN, HLD, DM, recent diagnoses of epilepsy, breast cancer p/w one week ago - sharp pain in L eye, tearing, eye redness, vision blurring. She reports that her symptoms began while she was at rest one week ago, eye pain described as a tearing sensation, 8/10, with lacrimation from that eye as well as blurred vision. She reports that the pain was constant for approx 4 days, at which point the pain resolved entirely, but blurred vision persisted. She reports significant stress recently, including diagnoses of both breast cancer and epilepsy two months ago, and that her pain started today after receiving a letter that her medical insurance was in danger of being revoked. No prior similar episodes, or prior ocular problems. She called her primary care provider, who requested that she seek evaluation in the ED. She denies any smoking, alcohol, or drug use. Past History - Past Medical History Allergies/Adverse Reactions: Allergies Allergy/AdvReac Type Severity Reaction Status Date / Time No Known Allergies Allergy Verified 09/28/19 09:43 Home Medications: Ambulatory Orders Atenolol [Tenormin -] 50 mg PO DAILY 12/31/13 Fosinopril Na [Monopril (Nf)] 40 mg PO DAILY 12/31/13 Levothyroxine [Synthroid -] 137 mcg PO DAILY 12/31/13 Atorvastatin Ca [Lipitor] 20 mg PO HS 08/28/17 Metformin HCl [Glucophage] 1,000 mg PO BID 08/28/17 Aspirin [Aspirin EC] 81 mg PO DAILY 09/28/19 Baclofen 0 mg PO PRN 09/28/19 Ezetimibe [Zetia -] 10 mg PO DAILY 09/28/19 Gabapentin 300 mg PO BID 09/28/19 Glimepiride 1 mg PO DAILY 09/28/19 levETIRAcetam [Keppra -] 1,000 mg PO BID 09/28/19 Cancer: Yes (left breast, lumpectomy in Jul 2019) COPD: No Diabetes: Yes (type 2) HTN: Yes Hypercholesterolemia: Yes Psychiatric Problems: Yes (depresion) Seizures: Yes - Psycho Social/Smoking Cessation Hx Smoking History: Never smoked Have you smoked in the past 12 months: No Hx Alcohol Use: No Drug/Substance Use Hx: No Substance Use Type: None Review of Systems - Review of Systems Able to Perform ROS?: Yes Comments:: 09/28/19 10:37 ROS: GENERAL/CONSTITUTIONAL: No fever or chills. No weakness. HEAD, EYES, EARS, NOSE AND THROAT: L eye blurring. L eye pain, tearing (now resolved). Red floater. No ear pain or discharge. No sore throat. CARDIOVASCULAR: No chest pain or shortness of breath RESPIRATORY: No cough, wheezing, or hemoptysis. GASTROINTESTINAL: No nausea, vomiting, diarrhea or constipation. GENITOURINARY: No dysuria, frequency, or change in urination. MUSCULOSKELETAL: No joint or muscle swelling or pain. No neck or back pain. SKIN: No rash NEUROLOGIC: No headache, vertigo, loss of consciousness, or change in strength/ sensation. ENDOCRINE: No increased thirst. No abnormal weight change HEMATOLOGIC/LYMPHATIC: No anemia, easy bleeding, or history of blood clots. ALLERGIC/IMMUNOLOGIC: No hives or skin allergy. *Physical Exam - Vital Signs Last Vital Signs Temp Pulse Resp BP Pulse Ox 98 F 72 18 146/66 97 09/28/19 09:40 09/28/19 09:40 09/28/19 09:40 09/28/19 09:40 09/28/19 09:40 - Physical Exam 09/28/19 10:38 PE: GENERAL: Awake, alert, and fully oriented, in no acute distress HEAD: No signs of trauma, normocephalic, atraumatic EYES: No vertical nystagmus, no firmness of L globe, PERRLA, EOMI, sclera anicteric, conjunctiva clear ENT: Auricles normal inspection, hearing grossly normal, nares patent, oropharynx clear without exudates. Moist mucosa NECK: Normal ROM, supple, no lymphadenopathy, JVD, or masses LUNGS: No distress, speaks full sentences, clear to auscultation bilaterally HEART: Regular rate and rhythm, normal S1 and S2, no murmurs, rubs or gallops, peripheral pulses normal and equal bilaterally. ABDOMEN: Soft, nontender, normoactive bowel sounds. No guarding, no rebound. No masses EXTREMITIES : Normal inspection, Normal range of motion, no edema. No clubbing or cyanosis NEUROLOGICAL: Cranial nerves II through XII grossly intact. Normal speech, normal gait, no focal sensorimotor deficits SKIN: Warm, Dry, normal turgor, no rashes or lesions noted ED Treatment Course - LABORATORY CBC & Chemistry Diagram: 09/28/19 11:30 09/28/19 11:30 Medical Decision Making - Medical Decision Making 73F w/hx HTN, HLD, epilepsy, active breast cancer p/w one week of L eye pain ( now resolved), vision change, tearing from the L eye. Ddx includes central retinal vein occlusion, central retinal artery occlusion given DM, HTN, blurring vision. Cluster headache possible given one sided pain with eye tearing , injection, and resolution, although ongoing vision blurring atypical. Acute angle glaucoma possible given initial symptoms of acute onset severe monocular eye pain/vision blurring, but unlikely given resolution of pain, lack of L eye injection, and equal reactivity to light. Diabetic retinopathy also possible given DM, although not consistent with initial pain. Plan: CBC CMP PT/INR, APTT Ocular tonometry Visual acuity exam CT Head w/o contrast Dispo: Pending 09/28/19 12:02 Visual acuity - 20/40 (R eye), 20/30 (L eye) Tonometry: R eye - 17 L eye - 14 --- CT head - negative CBC, CMP - wnl PT/INR - wnl APTT - wnl 09/28/19 13:[address] Reaves (ophthalmology) for follow up plan. He will see her today in the clinic at 1700. Plan for discharge with close ophtho follow up. Discharge - Discharge Information Problems reviewed: Yes Clinical Impression/Diagnosis: Blurred vision, left eye Condition: Stable Disposition: HOME - Admission No - Follow up/Referral Referrals: ON STAFF,NOT [Primary Care Provider] - - Patient Discharge Instructions Additional Instructions: You were seen in the ER for vision blurring and eye pain. We tested the pressure in your eyes, which was normal. Your head CT scan was also normal. You have an appointment with Dr. Reaves (ophthalmology - eye doctor) today at 5PM. Please be sure to keep the appointment. Return to the ER if you develop eye pain , vision loss, blood in the eye, chest pain, or trouble breathing. - Post Discharge Activity
[2019-09-28] MEDS ORDERED: TETRACAINE 0.5% HCL 0.6ML DROPPER.BOTTLE OS ONE (11:02)
[2019-09-28] MEDS ORDERED: TETRACAINE 0.5% OPHTH SOLN 2 ML BOTTLE ONE (11:15)
[2019-09-28] MEDS ORDERED: LORazepam 2 MG/ML SDV VIAL ONE (11:43)
[2019-09-28 11:45] LABS: BASO % 1.6 % (0-2.0); EOS % 2.5 % (0-4.5); HEMATOCRIT 40.5 % (32.4-45.2); HEMOGLOBIN 13.4 GM/dL (10.7-15.3); LYMPH % 53.2 % (8-40); MCH 29.8 pg (25.7-33.7); MCHC 33.1 g/dl (32.0-36.0); MEAN CELL VOLUME 90.2 fl (80-96); MEAN PLT VOLUME 9.6 fl (7.5-11.1); MONO % 7.7 % (3.8-10.2); PLATELET COUNT 244 K/MM3 (134-434); RBC 4.49 M/mm3 (3.60-5.2); RDW 14.8 % (11.6-15.6); WHITE BLOOD COUNT 7.3 K/mm3 (4.0-10.0)
[2019-09-28 12:15] LABS: BILIRUBIN,TOTAL 0.7 mg/dL (0.2-1); BLOOD UREA NITROGEN 25.6 mg/dL (7-18); CALCIUM 9.3 mg/dL (8.5-10.1); CREATININE 1.3 mg/dL (0.55-1.3); POTASSIUM 4.8 mmol/L (3.5-5.1); TOT PROT 8.7 g/dl (6.4-8.2)
[2019-09-28 12:18] LABS: INR 0.96 (0.83-1.09); PROTHROMBIN TIME (PATIENT) 11.3 SEC (9.7-13.0)
[2019-09-28 12:21] LABS: ACTIVATED PTT 33.4 SECONDS (25.2-36.5)
[2019-09-28 12:57] VITALS: BP 103/64; PULSE 64; TEMP 98.2
--- NOTE | 2019-09-28 16:05 | PDOC ---
Documentation entered by Marlon Izquierdo SCRIBE, acting as scribe for Andrea Joe MD. Andrea Joe MD: This documentation has been prepared by the Timbo olivier Daniel, SCRIBE, under my direction and personally reviewed by me in its entirety. I confirm that the documentation accurately reflects all work, treatment, procedures, and medical decision making performed by me. Attending Attestation - Resident Resident Name: Matthew Lozano - ED Attending Attestation I have performed the following: I have examined & evaluated the patient, The case was reviewed & discussed with the resident, I agree w/resident's findings & plan, Exceptions are as noted - HPI HPI: 09/28/19 10:33 The patient is a 73 year old female with a past medical history of diabetes, HTN , HLD, breast cancer, and epilepsy here today for evaluation of left eye pain and tearing. The patient reports that 1 week ago she developed a sudden onset of left eye pain, tearing, and blurry vision. She states that the pain resolved on friday (09/26/2019). She states that today she noticed a red floater in her left eye and called her PCP who instructed her to come to the ED. Patient denies headache, lightheadedness. Denies fever, chills. Denies chest pain, shortness of breath. Denies nausea, vomiting, diarrhea, abdominal pain. Allergies: NKA - Physicial Exam PE: 09/28/19 14:06 Vitals: Triage vital signs reviewed General Appearance: No acute distress, well nourished, well developed Head: Atraumatic Eyes: Pupils equal reactive round, extraocular movement intact Neck: Supple; No nuchal rigidity Chest Wall: Nontender Cardiac: Regular rate and rhythm, no murmurs, no rubs, no gallops Lungs: Clear to auscultation bilateral, good air movement bilaterally Abdomen: Soft, nondistended, normal bowel sounds, nontender to palpation Extremities: Full range of motion to all extremities, no cyanosis, clubbing, or edema Skin: Warm and dry, no rashes or lesions, no rash, no petechiae Neuro: Strength intact to all extremities, Sensation intact to all extremities Psych: Normal mood, normal affect - Medical Decision Making 09/28/19 16:31 Eye pain resolved visual acuity within normal limits intraocular pressures within normal limits bilaterally Normal eye exam at this time patient arranged for outpatient ophthalmologic follow-up labs and head CT normal Findings, the need for follow-up and strict return instructions discussed with patient.
== END 2019-09-28 14:45 | disposition home or self-care (01) ==
LOC: JER 09:33
PROC: 3E033NZ Introduction of Analgesics, Hypnotics, Sedatives into Peripheral Vein, Percutaneous Approach (ICD-10-PCS; principal; 2019-09-28)
DX: H53.8 Other visual disturbances (principal); I10 Essential (primary) hypertension; E78.00 Pure hypercholesterolemia, unspecified; E11.9 Type 2 diabetes mellitus without complications; Z79.84 Long term (current) use of oral hypoglycemic drugs; G40.909 Epilepsy, unspecified, not intractable, without status epilepticus; Z85.3 Personal history of malignant neoplasm of breast; F32.9 Major depressive disorder, single episode, unspecified
CPT/HCPCS: 36415; 70450-TC; 80053; 85025; 85610; 85730; 96374; 99284-25

== ENCOUNTER 2019-10-12 03:29 | Emergency (ER) | payer OTHER ==
--- NOTE | 2019-10-12 04:05 | PDOC ---
History of Present Illness - General Chief Complaint: Pain, Acute Stated Complaint: PAIN History Source: Patient Exam Limitations: No Limitations Past History - Past Medical History Allergies/Adverse Reactions: Allergies Allergy/AdvReac Type Severity Reaction Status Date / Time No Known Allergies Allergy Verified 10/12/19 03:59 Home Medications: Ambulatory Orders Atenolol [Tenormin -] 50 mg PO DAILY 12/31/13 Fosinopril Na [Monopril (Nf)] 40 mg PO DAILY 12/31/13 Levothyroxine [Synthroid -] 137 mcg PO DAILY 12/31/13 Atorvastatin Ca [Lipitor] 20 mg PO HS 08/28/17 Metformin HCl [Glucophage] 1,000 mg PO BID 08/28/17 Aspirin [Aspirin EC] 81 mg PO DAILY 09/28/19 Baclofen 0 mg PO PRN 09/28/19 Ezetimibe [Zetia -] 10 mg PO DAILY 09/28/19 Gabapentin 300 mg PO BID 09/28/19 Glimepiride 1 mg PO DAILY 09/28/19 levETIRAcetam [Keppra -] 1,000 mg PO BID 09/28/19 Cancer: Yes (left breast, lumpectomy in Jul 2019) COPD: No Diabetes: Yes (type 2) HTN: Yes Hypercholesterolemia: Yes Psychiatric Problems: Yes (depresion) Seizures: Yes - Psycho Social/Smoking Cessation Hx Smoking History: Never smoked Have you smoked in the past 12 months: No Hx Alcohol Use: No Drug/Substance Use Hx: No Substance Use Type: None *Physical Exam - Vital Signs Last Vital Signs Temp Pulse Resp BP Pulse Ox 98.1 F 69 18 137/69 96 10/12/19 03:44 10/12/19 03:44 10/12/19 03:44 10/12/19 03:44 10/12/19 03:44 Discharge - Follow up/Referral Referrals: Ahmet Wild MD [Primary Care Provider] - - Patient Discharge Instructions - Post Discharge Activity
--- NOTE | 2019-10-12 04:18 | PDOC ---
History of Present Illness - General Chief Complaint: Pain, Acute Stated Complaint: PAIN Time Seen by Provider: 10/12/19 04:11 History Source: Patient - History of Present Illness Initial Comments: 10/12/19 05:36 73-year-old female complaining of left calf pain worsening over the last 2 days. Denies shortness of breath, chest pain, fever, chills, nausea, vomiting, dizziness. Patient has a past medical history of hypertension, hypothyroidism, hypercholesteremia, diabetes, chronic back pain, depression, seizures Past History - Past Medical History Allergies/Adverse Reactions: Allergies Allergy/AdvReac Type Severity Reaction Status Date / Time No Known Allergies Allergy Verified 10/12/19 03:59 Home Medications: Ambulatory Orders Atenolol [Tenormin -] 50 mg PO DAILY 12/31/13 Fosinopril Na [Monopril (Nf)] 40 mg PO DAILY 12/31/13 Levothyroxine [Synthroid -] 137 mcg PO DAILY 12/31/13 Atorvastatin Ca [Lipitor] 20 mg PO HS 08/28/17 Metformin HCl [Glucophage] 1,000 mg PO BID 08/28/17 Aspirin [Aspirin EC] 81 mg PO DAILY 09/28/19 Baclofen 0 mg PO PRN 09/28/19 Ezetimibe [Zetia -] 10 mg PO DAILY 09/28/19 Gabapentin 300 mg PO BID 09/28/19 Glimepiride 1 mg PO DAILY 09/28/19 levETIRAcetam [Keppra -] 1,000 mg PO BID 09/28/19 Ibuprofen 400 mg PO TID PRN #30 tablet 10/12/19 Ibuprofen 600 mg PO QID PRN #14 tablet 10/12/19 Cancer: Yes (left breast, lumpectomy in Jul 2019) COPD: No Diabetes: Yes (type 2) HTN: Yes Hypercholesterolemia: Yes Psychiatric Problems: Yes (depresion) Seizures: Yes - Psycho Social/Smoking Cessation Hx Smoking History: Never smoked Have you smoked in the past 12 months: No Hx Alcohol Use: No Drug/Substance Use Hx: No Substance Use Type: None Review of Systems - Review of Systems Able to Perform ROS?: Yes Is the patient limited Mohawk proficient: No Constitutional: No: Symptoms Reported, See HPI, Chills, Diaphoresis, Fever, Loss of Appetite, Malaise, Night Sweats, Weakness, Weight Stable, Unintentional Wgt. Loss, Unexplained wgt Loss, Other Musculoskeletal: Yes: Other (leg pain) *Physical Exam - Vital Signs Last Vital Signs Temp Pulse Resp BP Pulse Ox 98.1 F 69 18 137/69 96 10/12/19 03:44 10/12/19 03:44 10/12/19 03:44 10/12/19 03:44 10/12/19 03:44 - Physical Exam General Appearance: Yes: Appropriately Dressed Respiratory/Chest: positive: Lungs Clear, Normal Breath Sounds Extremity: positive: Normal Capillary Refill, Other (+ pedal pulse) Integumentary: positive: Normal Color, Dry, Warm Neurologic: positive: Fully Oriented, Alert, Normal Mood/Affect ED Progress Note - Progress Note Progress Note: 10/12/19 05:43 A: leg / calf pain P: POCUS negative for DVT ibuprofen valium x 1 will give a small dose. patient is taking a cab home 10/12/19 05:49 Discharge - Discharge Information Problems reviewed: Yes Clinical Impression/Diagnosis: Pain of left calf Disposition: HOME - Additional Discharge Information Prescriptions: Ibuprofen 400 mg PO TID PRN #30 tablet PRN Reason: Pain Ibuprofen 600 mg PO QID PRN #14 tablet PRN Reason: Moderate Pain - Follow up/Referral Referrals: Ahmet Wild MD [Primary Care Provider] - Sedrick Borjas DO [Staff Physician] - Call tomorrow - Patient Discharge Instructions Patient Printed Discharge Instructions: DI for Leg Pain Additional Instructions: Wear a compression stocking. Take ibuprofen every 6 hours as needed for pain It is a important that you follow-up with the vascular doctor, referral was given to you - Post Discharge Activity
[2019-10-12] MEDS ORDERED: ACETAMINOPHEN 500 MG TABLET (FP) PO ONE (04:51)
--- NOTE | 2019-10-12 04:55 | PDOC ---
*Physical Exam - Vital Signs Last Vital Signs Temp Pulse Resp BP Pulse Ox 98.1 F 69 18 137/69 96 10/12/19 03:44 10/12/19 03:44 10/12/19 03:44 10/12/19 03:44 10/12/19 03:44 - Physical Exam 10/12/19 04:53 awake alert lungs clear bilat heart rrr no mrg abd soft nt nd ext wwp. no noted edema. 2+ dp /pt pulses. left posterior calf ttp. large varicose veins. Medical Decision Making - Medical Decision Making 10/12/19 04:54 73 yo F with h/o htn dm cva, siezure here with c/o let posterior calf pain. hs had similar pain on the right calf in the past but never on left leg. does take baclofen for muscle spasm. denies cp no sob. felt her fooot was more swollen. did not take anything for pain prior to arrival. focused ED Doppler left leg, no proximal DVT recommend repeat ultrasound in 5 - 7 days for persistant sxs. Discharge - Discharge Information Problems reviewed: Yes Clinical Impression/Diagnosis: Pain of left calf Disposition: HOME - Additional Discharge Information Prescriptions: Ibuprofen 400 mg PO TID PRN #30 tablet PRN Reason: Pain Ibuprofen 600 mg PO QID PRN #14 tablet PRN Reason: Moderate Pain - Follow up/Referral Referrals: Sedrick Borjas DO [Staff Physician] - Call tomorrow Ahmet Wild MD [Primary Care Provider] - - Patient Discharge Instructions Patient Printed Discharge Instructions: DI for Leg Pain Additional Instructions: Wear a compression stocking. Take ibuprofen every 6 hours as needed for pain It is a important that you follow-up with the vascular doctor, referral was given to you - Post Discharge Activity
[2019-10-12] MEDS ORDERED: ACETAMINOPHEN 325 MG TABLET (FP) ONE (04:57)
[2019-10-12 05:00] VITALS: BP 137/69; PULSE 69; TEMP 98.1; BMI 34.7
[2019-10-12] MEDS ORDERED: IBUPROFEN 600 MG TABLET (FP) PO ONE ×2 (05:00→05:01)
[2019-10-12] MEDS ORDERED: diazePAM 2 MG TABLET PO ONE (05:36)
[2019-10-12] MEDS ORDERED: diazePAM 2 MG TABLET ONE (05:54)
== END 2019-10-12 07:08 | disposition home or self-care (01) ==
LOC: JER 03:29
PROC: B54CZZ3 Ultrasonography of Left Lower Extremity Veins, Intravascular (ICD-10-PCS; principal; 2019-10-12)
DX: M79.662 Pain in left lower leg (principal); I10 Essential (primary) hypertension; E78.00 Pure hypercholesterolemia, unspecified; E06.9 Thyroiditis, unspecified; E11.9 Type 2 diabetes mellitus without complications; Z79.84 Long term (current) use of oral hypoglycemic drugs; G40.909 Epilepsy, unspecified, not intractable, without status epilepticus; F32.9 Major depressive disorder, single episode, unspecified; M54.89 Other dorsalgia; G89.29 Other chronic pain
CPT/HCPCS: 93971-LT; 93971-RT; 99284-25

== ENCOUNTER 2019-11-09 08:51 | Emergency (ER) | payer OTHER ==
[2019-11-09 09:01] VITALS: TEMP 100.2; BMI 36.8
--- NOTE | 2019-11-09 09:08 | PDOC ---
History of Present Illness - General Chief Complaint: Respiratory Stated Complaint: WEAKNESS History Source: Patient Exam Limitations: No Limitations - History of Present Illness Initial Comments: 11/09/19 09:08 73 yo F with a hx of DM (oral anti-glycemics), HTN, HLD, and breast cancer (s/p radiation and surgical resection; last treatment Aug 2019), epilepsy, and hypothyroidism (s/p thyroidectomy) presents to the emergency department with 1 week of URI like symptoms. per the patient, she states she has reduced ability to taste and poor appetite. Denies recent travel, however states her son, who lives with her, is constantly in and out of the house. Denies influenza vaccine. Endorses the following: body aches, lightheadedness, generalized weakness, poor appetite, and cough (non productive). Denies the following: SOB, fever, chills, nausea, vomiting, abdominal pain, dysuria, hematuria, hematochezia, and leg pain/swelling. No hx of DVT/PE. Past History - Past Medical History Allergies/Adverse Reactions: Allergies Allergy/AdvReac Type Severity Reaction Status Date / Time No Known Allergies Allergy Verified 11/09/19 09:01 Home Medications: Ambulatory Orders Atenolol [Tenormin -] 50 mg PO DAILY 12/31/13 Fosinopril Na [Monopril (Nf)] 40 mg PO DAILY 12/31/13 Levothyroxine [Synthroid -] 137 mcg PO DAILY 12/31/13 Atorvastatin Ca [Lipitor] 20 mg PO HS 08/28/17 Metformin HCl [Glucophage] 1,000 mg PO BID 08/28/17 Aspirin [Aspirin EC] 81 mg PO DAILY 09/28/19 Baclofen 0 mg PO PRN 09/28/19 Ezetimibe [Zetia -] 10 mg PO DAILY 09/28/19 Gabapentin 300 mg PO BID 09/28/19 Glimepiride 1 mg PO DAILY 09/28/19 levETIRAcetam [Keppra -] 1,000 mg PO BID 09/28/19 Ibuprofen 400 mg PO TID PRN #30 tablet 10/12/19 Ibuprofen 600 mg PO QID PRN #14 tablet 10/12/19 Azithromycin [Zithromax 250mg Tablets -] 250 mg PO UTDICT #6 tab 11/09/19 Cancer: Yes (left breast, lumpectomy in Jul 2019) COPD: No Diabetes: Yes (type 2) HTN: Yes Hypercholesterolemia: Yes Psychiatric Problems: Yes (depresion) Seizures: Yes - Immunization History Immunization Up to Date: Yes - Psycho Social/Smoking Cessation Hx Smoking History: Never smoked Have you smoked in the past 12 months: No Information on smoking cessation initiated: No Hx Alcohol Use: No Drug/Substance Use Hx: No Substance Use Type: None Review of Systems - Review of Systems Able to Perform ROS?: Yes Is the patient limited [place] proficient: No Constitutional: Yes: Weakness. No: Chills, Diaphoresis, Fever HEENTM: No: Eye Pain, Ear Pain, Nose Pain, Throat Pain Respiratory: Yes: Cough. No: Shortness of Breath, Productive cough, Hemoptysis Cardiac (ROS): Yes: Lightheadedness. No: Chest Pain, Palpitations ABD/GI: Yes: Poor Appetite, Poor Fluid Intake. No: Constipated, Diarrhea, Nausea, Rectal Bleeding, Vomiting, Abdominal cramping, Tarry Stools : No: Burning, Dysuria, Hematuria Musculoskeletal: No: Back Pain, Joint Pain, Neck Pain Integumentary: No: Rash Neurological: No: Headache, Numbness, Tingling, Tremors Psychiatric: Yes: Change in Appetite Endocrine: No: Unexplained Weight Loss Hematologic/Lymphatic: No: Anemia *Physical Exam - Vital Signs Last Vital Signs Temp Pulse Resp BP Pulse Ox 100.2 F H 86 20 107/51 L 99 11/09/19 08:58 11/09/19 08:58 11/09/19 08:58 11/09/19 08:58 11/09/19 08:58 - Physical Exam General Appearance: Yes: Nourished, Appropriately Dressed. No: Apparent Distress, Alcohol on Breath, Intoxicated, Other HEENT: positive: EOMI, ANGELLA, Normal Voice, Symmetrical, Pharyngeal Erythema, Hearing Grossly Normal. negative: Pharynx Normal, Pale Conjunctivae, Scleral Icterus (R), Scleral Icterus (L), Muffled/Hoarse voice, Tonsillar Exudate, Nasal Congestion, Rhinorrhea, Sinus Tenderness, Excessive drooling Neck: positive: Trachea midline, Supple. negative: Tender, Lymphadenopathy (R), Lymphadenopathy (L), Tender lateral, Tender midline Respiratory/Chest: positive: Lungs Clear, Normal Breath Sounds. negative: Chest Tender, Respiratory Distress, Accessory Muscle Use Cardiovascular: positive: Regular Rhythm, Regular Rate, S1, S2. negative: Systolic Murmur Gastrointestinal/Abdominal: positive: Normal Bowel Sounds, Flat, Soft. negative: Tender, Distended, Guarding, Rebound Lymphatic: negative: Adenopathy Musculoskeletal: positive: Normal Inspection. negative: CVA Tenderness, Vertebral Tenderness Extremity: positive: Normal Capillary Refill, Normal Inspection, Normal Range of Motion. negative: Tender, Swelling, Calf Tenderness Integumentary: positive: Normal Color, Dry, Warm Neurologic: positive: induction coordination power engineer II-XII NML intact, Fully Oriented, Alert, Normal Mood/Affect, Normal Response, Motor Strength 5/5. negative: EOM Palsy, Facial Droop, Numbness, Sensory Deficit ED Treatment Course - LABORATORY CBC & Chemistry Diagram: 11/09/19 10:00 11/09/19 10:00 Medical Decision Making - Medical Decision Making 11/09/19 11:52 73 yo F with a hx of DM (oral anti-glycemics), HTN, HLD, and breast cancer (s/p radiation and surgical resection; last treatment Aug 2019), epilepsy, and hypothyroidism (s/p thyroidectomy) presents to the emergency department with 1 week of URI like symptoms. Initial vitals: Initial Vital Signs Temp Pulse Resp BP Pulse Ox 100.2 F H 86 20 107/51 L 99 11/09/19 08:58 11/09/19 08:58 11/09/19 08:58 11/09/19 08:58 11/09/19 08:58 Work up: patient presents with URI like symptoms consistent with COVID ddx includes RSV vs influenza vs PNA vs UTI vs electrolyte abnormality Patient to be given fluids, toradol. Laboratory Tests 11/09/19 11/09/19 11/09/19 10:00 10:00 10:00 WBC 5.0 RBC 4.49 Hgb 13.3 Hct 40.3 MCV 89.6 MCH 29.6 MCHC 33.0 RDW 14.8 Plt Count 217 MPV 9.2 Absolute Neuts (auto) 2.6 Neutrophils % 52.0 D Lymphocytes % 37.3 D Monocytes % 9.7 Eosinophils % 0.2 D Basophils % 0.8 Nucleated RBC % 0 Sodium 137 Potassium 5.3 H Chloride 105 Carbon Dioxide 23 Anion Gap 8 BUN 24.7 H Creatinine 1.3 Est GFR (CKD-EPI)AfAm 47.13 Est GFR (CKD-EPI)NonAf 40.67 Random Glucose 151 H Lactic Acid Calcium 8.2 L Total Bilirubin 0.4 AST 112 H ALT 143 H Alkaline Phosphatase 67 Creatine Kinase 217 H Creatine Kinase Index No Result Required. CK-MB (CK-2) < 1.0 Troponin I 0.02 Total Protein 8.3 H Albumin 3.4 Urine Color Yellow Urine Appearance Clear Urine pH 5.0 Ur Specific [place] 1.032 Urine Protein 2+ H Urine Glucose (UA) 3+ H Urine Ketones Trace H Urine Blood Negative Urine Nitrite Negative Urine Bilirubin Negative Urine Urobilinogen 1.0 Ur Leukocyte Esterase Negative Urine WBC (Auto) 25 Urine RBC (Auto) 8 Urine Casts (Auto) 1 U Epithel Cells (Auto) 15 Urine Bacteria (Auto) 141 Urine Yeast (Auto) Rare Influenza A (Rapid) Influenza B (Rapid) RSV Rapid 11/09/19 11/09/19 11/09/19 10:12 10:12 10:13 WBC RBC Hgb Hct MCV MCH MCHC RDW Plt Count MPV Absolute Neuts (auto) Neutrophils % Lymphocytes % Monocytes % Eosinophils % Basophils % Nucleated RBC % Sodium Potassium Chloride Carbon Dioxide Anion Gap BUN Creatinine Est GFR (CKD-EPI)AfAm Est GFR (CKD-EPI)NonAf Random Glucose Lactic Acid 1.3 Calcium Total Bilirubin AST ALT Alkaline Phosphatase Creatine Kinase Creatine Kinase Index CK-MB (CK-2) Troponin I Total Protein Albumin Urine Color Urine Appearance Urine pH Ur Specific [place] Urine Protein Urine Glucose (UA) Urine Ketones Urine Blood Urine Nitrite Urine Bilirubin Urine Urobilinogen Ur Leukocyte Esterase Urine WBC (Auto) Urine RBC (Auto) Urine Casts (Auto) U Epithel Cells (Auto) Urine Bacteria (Auto) Urine Yeast (Auto) Influenza A (Rapid) Negative Influenza B (Rapid) Negative RSV Rapid Negative UA consistent with dehydration given ketones in UA. Patient is denies urinary symptoms including dysuria CXR shows infiltrate at the left base with abx given 105/62, 85 bpm, 95% o2 s/p 1 liter. Will provide second liter now. Reassessment: 115/52, 96% O2, 84 bpm after second liter. Patient was walked around and maintained 96% O2 without SOB Will discharge patient with antibiotics I explained to the patient the importance of quarantine including self isolating from her son who lives at her home. She was given the discharge instructions for COVID at the time of discharge. EKG: NSR without st elevation or depression. Discharge - Discharge Information Problems reviewed: Yes Clinical Impression/Diagnosis: Suspected 2019 novel coronavirus infection, Pneumonia Condition: Stable Disposition: HOME - Additional Discharge Information Prescriptions: Azithromycin [Zithromax 250mg Tablets -] 250 mg PO UTDICT #6 tab - Follow up/Referral Referrals: Ahmet Wild MD [Primary Care Provider] - - Patient Discharge Instructions Patient Printed Discharge Instructions: DI for Pneumonia -- Adult, [facility]- Coronavirus Instructions Additional Instructions: You were seen in the emergency department for your body aches. You likely have coronavirus. and need to adhere to the instructions given to you. Please keep your self isolated for the next 14 days. Please return to the emergency department if you have worsening symptoms or new concerning symptoms such as increased weakness and shortness of breath. Please stay hydrated this is very important to your health. Thank you. - Post Discharge Activity
[2019-11-09] MEDS ORDERED: SODIUM CHLORIDE 1,000 ML IV STA ×2 (09:53→11:44)
[2019-11-09] MEDS ORDERED: KETOROLAC TROMETHAMINE 15 MG/ML VIAL IVPUSH ONE (10:02)
[2019-11-09] MEDS ORDERED: KETOROLAC TROMETHAMINE 15 MG/ML VIAL ONE (10:08)
[2019-11-09 10:39] LABS: BASO % 0.8 % (0-2.0); EOS % 0.2 % (0-4.5); EPI CELLS 15 /uL (0-25.1); HEMATOCRIT 40.3 % (32.4-45.2); HEMOGLOBIN 13.3 GM/dL (10.7-15.3); HYALINE CASTS 1 /uL (0-3.1); LYMPH % 37.3 % (8-40); MCH 29.6 pg (25.7-33.7); MEAN CELL VOLUME 89.6 fl (80-96); MEAN PLT VOLUME 9.2 fl (7.5-11.1); MONO % 9.7 % (3.8-10.2); PLATELET COUNT 217 K/MM3 (134-434); RBC 4.49 M/mm3 (3.60-5.2); RDW 14.8 % (11.6-15.6); URINE APPEARANCE CLEAR; URINE BACTERIA 141 /uL (0-1359); URINE BILIRUBIN NEGATIVE (NEGATIVE); URINE COLOR YELLOW; URINE GLUCOSE (UA) 3+ (NEGATIVE); URINE KETONE TRACE (NEGATIVE); URINE LEUK ESTERASE NEGATIVE (NEGATIVE); URINE NITRITE NEGATIVE (NEGATIVE); URINE PROTEIN 2+ (NEGATIVE); URINE RBC 8 /uL (0-23.9); URINE WBC 25 /uL (0-25.8)
--- NOTE | 2019-11-09 10:49 | PDOC ---
Attending Attestation - Resident Resident Name: Von Fiore - ED Attending Attestation I have performed the following: I have examined & evaluated the patient, The case was reviewed & discussed with the resident, I agree w/resident's findings & plan, Exceptions are as noted - HPI HPI: 11/09/19 10:42 73yo female with multiple medical problems with body aches and fevers x 1 week. Pt states a mild cough- nonproductive. States she hasn't eaten or drank in a week because she wasn't feeling well. Pt denies n/v/d. No dysuria. Pt has not checked her temp at home. States a person coughed on her over a week ago in [place]. Pt states she feels lightheaded. - Physicial Exam PE: 11/09/19 10:49 Gen: aaox3, nad heent: PERRL, EOMI, nares clear, posterior pharynx mild erythema no exudates heart: +s1s2 reg lungs: cta b/l abd: soft, nt/nd +bs, +obese ext: no c/c/e, ambulatory in the ER - Medical Decision Making 11/09/19 10:51 a/p: 73yo female with body aches x 1 week and low grade temp -pt states lightheaded -pt with 8 days of symptoms -pt denies travel or sick contact other than someone coughing in [place] -will send labs, flu, rsv, cxr -will hydrate, toradol for pain and fever, po intake -will monitor and reassess 11/09/19 10:53 ua shows dehydration and ketones ivf hydration running 11/09/19 12:40 pulse ox 96 with ambulation vss 11/09/19 12:40 elevated lft, no abd pain pt has tolerated po 11/09/19 12:41 pt with L base infiltrate will give abx suspicious for covid pt asking to go home and be treated at home pt feeling much better ambulatory in the ER resident discussed quarantine Discharge - Discharge Information Problems reviewed: Yes Clinical Impression/Diagnosis: Suspected 2019 novel coronavirus infection, Pneumonia Condition: Stable Disposition: HOME - Admission No - Follow up/Referral Referrals: Ahmet Wild MD [Primary Care Provider] - - Patient Discharge Instructions - Post Discharge Activity
[2019-11-09 11:05] LABS: ALBUMIN 3.4 g/dl (3.4-5.0); ALK PHOS 67 U/L (45-117); ANION GAP 8 MMOL/L (8-16); BILIRUBIN,TOTAL 0.4 mg/dL (0.2-1); BLOOD UREA NITROGEN 24.7 mg/dL (7-18); CALCIUM 8.2 mg/dL (8.5-10.1); CHLORIDE 105 mmol/L (98-107); CO2 23 mmol/L (21-32); CREATININE 1.3 mg/dL (0.55-1.3); GLUCOSE,RANDOM 151 mg/dL (74-106); POTASSIUM 5.3 mmol/L (3.5-5.1); SGOT/AST 112 U/L (15-37); SGPT/ALT 143 U/L (13-61); SODIUM 137 mmol/L (136-145); TOT PROT 8.3 g/dl (6.4-8.2)
[2019-11-09 11:54] LABS: YEAST RARE (NEGATIVE)
[2019-11-09 12:52] VITALS: BP 115/52; PULSE 84
--- NOTE | 2019-11-10 10:20 | EKG ---
Test Reason : Blood Pressure : / mmHG Vent. Rate : 086 BPM Atrial Rate : 086 BPM P-R Int : 168 ms QRS Dur : 094 ms QT Int : 360 ms P-R-T Axes : 063 002 026 degrees QTc Int : 430 ms NORMAL SINUS RHYTHM POSSIBLE LEFT ATRIAL ENLARGEMENT BORDERLINE ECG WHEN COMPARED WITH ECG OF 09-DEC-2017 07:51, NO SIGNIFICANT CHANGE WAS FOUND Confirmed by Otoniel Hall MD ([id number]) on 11/10/2019 10:19:49 AM Referred By: Confirmed By:Otoniel Hall MD
== END 2019-11-09 13:01 | disposition home or self-care (01) ==
LOC: JER 08:51
DX: J18.9 Pneumonia, unspecified organism (principal)
CPT/HCPCS: 36415; 71045-TC-FY; 80053; 81003; 82550; 82553; 83605; 84484; 85025; 87086; 87804; 87807; 93005; 93010; 99285-25; J7030